=== PATIENT | male | born 1940 | race Two or more races ===

== ENCOUNTER 2022-05-25 18:13 | Inpatient (IN) | payer OTHER ==
[~2022-05-25] VITALS: Ht 172.7 cm; Wt 72.6 kg
[~2022-05-25 18:13] MED LIST: AMARIL; COZAAR50 MG PO; GLUCOPHAGE XR500 MG PO; TRICOR48 MG PO
--- NOTE | 2022-05-25 18:47 | NUR ---
SE RECIBE PTE ALERTA Y ORIENTADO X3 EL CUAL REFIERE VENIR POR DOLOR EN CADERA. SE MIDEN S/V A PTE Y SE COLOCA EN KIM. [facility]
--- NOTE | 2022-05-25 18:54 | NUR ---
SE NOTIFICA ESTUDIO DE RX PENDIENTE A REALIZAR Y SE REALIZA EKG A PTE.
[2022-05-25] MEDS ORDERED: CHILDREN'S ASPI81 MG (18:59)
[2022-05-25] MEDS ORDERED: LANTUS SOL100 UNIT/1 (19:00)
[2022-05-25] MEDS ORDERED: ATORVASTATIN CA20 MG (19:00)
[2022-05-25] MEDS ORDERED: TOPROL XL25 M1 (19:00)
[2022-05-25] MEDS ORDERED: HUMALOG100 UNIT/2 (19:01)
[2022-05-25] MEDS ORDERED: AVAPRO300 MG (19:01)
[2022-05-25] MEDS ORDERED: LEVOTHYROXINE25 MCG (19:02)
[2022-05-25] MEDS ORDERED: AMLODIPINE-OLM1 EACH (19:02)
== END 2022-05-30 12:18 | DRG 999 ==
LOC: ER 18:13 → SURH 21:05
PROVIDERS: ADMIT Internal Medicine; ATTEND Internal Medicine
PROC: 0QR40JZ Replacement of Right Acetabulum with Synthetic Substitute, Open Approach (ICD-10-PCS; principal; 2022-05-25)
PROC: 0SRR01Z Replacement of Right Hip Joint, Femoral Surface with Metal Synthetic Substitute, Open Approach (ICD-10-PCS; 2022-05-25)
DX: S72.041A Displaced fracture of base of neck of right femur, initial encounter for closed fracture (principal); I13.10 Hypertensive heart and chronic kidney disease without heart failure, with stage 1 through stage 4 chronic kidney disease, or unspecified chronic kidney disease; E11.22 Type 2 diabetes mellitus with diabetic chronic kidney disease; N18.4 Chronic kidney disease, stage 4 (severe); Z79.4 Long term (current) use of insulin; D63.1 Anemia in chronic kidney disease; Z20.822 Contact with and (suspected) exposure to COVID-19; I25.10 Atherosclerotic heart disease of native coronary artery without angina pectoris

== ENCOUNTER 2024-07-03 06:25 | Outpatient (CLI) | payer OTHER ==
[~2024-07-03 06:25] MED LIST changes: +AMLODIPINE-OLM1 EACH; +ATORVASTATIN CA20 MG; +AVAPRO300 MG; +CHILDREN'S ASPI81 MG; +HUMALOG100 UNIT/2; +LANTUS SOL100 UNIT/1; +LEVOTHYROXINE25 MCG; +TOPROL XL25 M1
[2024-07-03 08:03] LABS: BILIRUBIN TOTAL 0.47 mg/dL (0.3-1.2); CALCIUM 9.9 mg/dL (8.5-10.1); CREATININE SERUM 2.75 mg/dL (0.70-1.30); GFR 22.32; GLOBULINA 3.2 G/DL (2.4-3.5); MAGNESIUM 2.3 mg/dL (1.8-2.4); PHOSPHOROUS 3.5 mg/dL (2.5-4.9); POTASSIUM 5.36 mEq/L (3.5-5.1); TOTAL PROTEIN 7.2 gm/dL (6.4-8.2)
[2024-07-06 14:54] LABS: CALCIUM IONIZED 5.2 mg/dL (4.5-5.6)
== END 2024-07-03 14:44 | disposition home or self-care (01) ==
LOC: LAB 06:25
PROVIDERS: ATTEND Orthopaedic Surgery
DX: E55.9 Vitamin D deficiency, unspecified (principal); M85.9 Disorder of bone density and structure, unspecified; E56.1 Deficiency of vitamin K; E21.3 Hyperparathyroidism, unspecified; E88.89 Other specified metabolic disorders; M81.8 Other osteoporosis without current pathological fracture